=== PATIENT | female | born 1975 | race Caucasian/White ===

== ENCOUNTER 2017-05-29 15:51 | Emergency (ER) | payer OTHER ==
[~2017-05-29] VITALS: Ht 165.1 cm; Wt 124.7 kg
[~2017-05-29 15:51] MED LIST: ALBU90OI INH; AMOX500 PO; Bactrim Ds Tab1 EACH PO; CYCL10 PO; ERYT333ERA PO; Flonase 0.05% N16 GM; GLIP10 PO; HYDACE5 PO; HYDGUAL120 PO; LISI5 PO; LORA.5; MECL25 PO; MEDR150I; METF500; Metformin HCl1000 MG PO; Norco 5-325 Ta1 EACH PO; PENVK500 PO; Percocet 5-3251 EACH PO; Prednisone20 MG PO; SERT25; SERT50; SULTRIDS PO; Simvastatin20 MG PO; ZOLP5; Zithromax250 MG PO
[2017-05-29] MEDS ORDERED: Veetids 500500 MG PO (16:26)
[2018-01-13] MEDS ORDERED: BENZ100A PO (12:19)
== END 2017-05-29 16:33 | disposition home or self-care (01) ==
LOC: ER 15:51
DX: J02.9 Acute pharyngitis, unspecified (principal); E11.9 Type 2 diabetes mellitus without complications; Z88.6 Allergy status to analgesic agent; Z79.84 Long term (current) use of oral hypoglycemic drugs; Z79.899 Other long term (current) drug therapy; Z87.891 Personal history of nicotine dependence
CPT/HCPCS: 87430; 99283; J1100

== ENCOUNTER → 2017-07-27 | Outpatient (CLI) | payer SELFPAY ==
[~2017-07-27] MED LIST changes: +BENZ100A PO; +Veetids 500500 MG PO
[2017-07-27 17:34] LABS: Bilirubin, Urine Neg (Neg); Blood, Urine 1+ (Neg); Glucose Qualitative, Urine 4+ (Neg); Ketones, Urine Neg (Neg); Leukocyte Esterase, Urine 3+ (Neg); Nitrite, Urine Pos (Neg); Protein, Urine 3+ (Neg); Urobilinogen, Urine NORM (Normal)
[2017-07-27 17:40] LABS: Appearance, Urine Hazy (Clear); Color, Urine Yellow (P-Yellow)
[2017-07-27 17:41] LABS: Squamous Epithelial Cells Few /hpf (Few); White Blood Cells, Urine TNTC /hpf (0-5)
[2017-07-27 17:42] LABS: Bacteria Mod /hpf
== END ==
LOC: LAB 17:19
PROVIDERS: Registered Nurse Community Health
DX: N39.0 Urinary tract infection, site not specified (principal)
CPT/HCPCS: 81001; 87077; 87086; 87186

== ENCOUNTER → 2018-08-08 | Outpatient (CLI) | payer OTHER ==
[2018-08-08 17:59] LABS: BASOPHILS ABSOLUTE AUTO 0.05 K/mm3 (0.00-0.23); BASOPHILS PERCENT AUTO 1 % (0-2); EOSINOPHILS ABSOLUTE AUTO 0.09 K/mm3 (0.00-0.68); EOSINOPHILS PERCENT AUTO 2 % (0-6); Hematocrit 41.3 % (33.0-51.0); Hemoglobin 12.9 g/dL (11.5-16.0); IMMATURE GRAN ABSOLUTE AUTO 0.05 K/mm3 (0.00-0.10); IMMATURE GRAN PERCENT AUTO 1 % (0-1); LYMPHOCYTES ABSOLUTE AUTO 1.56 K/mm3 (0.84-5.20); LYMPHOCYTES PERCENT AUTO 27 % (21-46); MONOCYTES PERCENT AUTO 7 % (4-13); Mean Corpuscular HGB 26.8 pg (26.0-34.0); Mean Corpuscular HGB Conc 31.2 g/dL (31.5-36.5); Mean Corpuscular Volume 86 fL (80-100); Mean Platelet Volume 10.6 fL (9.1-12.4); NEUTROPHILS ABSOLUTE AUTO 3.74 K/mm3 (1.96-9.15); NEUTROPHILS PERCENT AUTO 64 % (41-73); Platelet Count 286 K/mm3 (150-400); RDW Coefficient Variation 13.5 % (11.7-14.2); Red Blood Cell Count 4.82 M/mm3 (3.80-5.20); White Blood Cell Count 5.89 K/mm3 (4.00-11.30)
[2018-08-08 18:28] LABS: Alanine Aminotransfer (ALT/SGP 26 U/L (12-78); Albumin, Blood 3.4 g/dL (3.4-5.0); Albumin/Globulin Ratio 0.8 (0.8-1.8); Alk Phos 87 U/L (50-136); Anion Gap 4 mmol/L (6-16); Aspartate Aminotrans (AST/SGOT 13 U/L (12-37); Bilirubin, Total 0.7 mg/dL (0.1-1.0); Blood Urea Nitrogen 9 mg/dL (8-24); Bun/Creatinine Ratio 19.2 (12.0-20.0); CO2, Blood 28 mmol/L (21-32); Calcium, Blood 8.8 mg/dL (8.5-10.1); Chloride, Blood 103 mmol/L (98-108); Cholesterol 186 mg/dL (50-200); Creatinine, Blood 0.47 mg/dL (0.40-1.00); Glomerular Filtration Rate >60 (60-); Glucose, Blood 313 mg/dL (70-99); HDL Cholesterol 46 mg/dL (>39); Low Density Lipoprotein Chol 94 mg/dL (0-110); Potassium, Blood 3.9 mmol/L (3.5-5.5); Sodium, Blood 135 mmol/L (136-145); Thyroid Stimulating Hormone 0.703 uIU/mL (0.360-4.800); Thyroxine (T4) 11.9 ug/dL (4.8-13.9); Total Protein, Blood 7.4 g/dL (6.4-8.2); Triglycerides 230 mg/dL (30-160); Very Low Density Lipoprot Chol 46 mg/dL (6-32)
== END ==
LOC: LAB SHORT 17:29 → LAB 17:29
PROVIDERS: Nurse Practitioner Family
DX: N39.0 Urinary tract infection, site not specified (principal); E11.65 Type 2 diabetes mellitus with hyperglycemia; F32.9 Major depressive disorder, single episode, unspecified
CPT/HCPCS: 80053; 80061; 82043; 82306; 84436; 84443; 85025; 87086

== ENCOUNTER → 2018-09-07 | Outpatient (CLI) | payer OTHER | LOC: LAB SHORT 17:36 → LAB 17:36 | DX: N39.0 Urinary tract infection, site not specified (principal) | CPT/HCPCS: 87086 ==

== ENCOUNTER → 2018-09-12 | Outpatient (CLI) | payer OTHER ==
[2018-09-14 15:06] LABS: HPV 16 Negative (Negative); HPV 18 Negative (Negative); HPV OTHER HR TYPES Negative (Negative)
[2018-09-14 23:08] LABS: CHLAMYDIA TRACHOMATIS, NAA Negative (Negative); NEISSERIA GONORRHOEAE, NAA Negative (Negative)
== END ==
LOC: LAB SHORT 17:40 → LAB 17:40
PROVIDERS: Nurse Practitioner Family
DX: Z01.419 Encounter for gynecological examination (general) (routine) without abnormal findings (principal)
CPT/HCPCS: 87491; 87591; 87624; G0123

== ENCOUNTER → 2019-04-03 | Outpatient (CLI) | payer OTHER ==
[2019-04-03 19:49] LABS: BASOPHILS ABSOLUTE AUTO 0.05 K/mm3 (0.00-0.23); BASOPHILS PERCENT AUTO 1 % (0-2); EOSINOPHILS ABSOLUTE AUTO 0.08 K/mm3 (0.00-0.68); EOSINOPHILS PERCENT AUTO 2 % (0-6); Hematocrit 43.7 % (33.0-51.0); Hemoglobin 13.5 g/dL (11.5-16.0); IMMATURE GRAN ABSOLUTE AUTO 0.05 K/mm3 (0.00-0.10); IMMATURE GRAN PERCENT AUTO 1 % (0-1); LYMPHOCYTES PERCENT AUTO 26 % (21-46); MONOCYTES ABSOLUTE AUTO 0.39 K/mm3 (0.16-1.47); MONOCYTES PERCENT AUTO 7 % (4-13); Mean Corpuscular HGB 25.7 pg (26.0-34.0); Mean Corpuscular HGB Conc 30.9 g/dL (31.5-36.5); Mean Corpuscular Volume 83 fL (80-100); Mean Platelet Volume 10.5 fL (9.1-12.4); NEUTROPHILS ABSOLUTE AUTO 3.48 K/mm3 (1.96-9.15); NEUTROPHILS PERCENT AUTO 64 % (41-73); Platelet Count 271 K/mm3 (150-400); RDW Coefficient Variation 15.2 % (11.7-14.2); RDW Standard Deviation 45.3 fL (35.1-46.3); Red Blood Cell Count 5.26 M/mm3 (3.80-5.20); White Blood Cell Count 5.45 K/mm3 (4.00-11.30)
[2019-04-03 19:50] LABS: Appearance, Urine Hazy (Clear); Bilirubin, Urine Neg (Neg); Blood, Urine 1+ (Neg); Color, Urine Yellow (P-Yellow); Glucose Qualitative, Urine 3+ (Neg); Ketones, Urine 1+ (Neg); Leukocyte Esterase, Urine 1+ (Neg); Nitrite, Urine Pos (Neg); Protein, Urine 1+ (Neg); Specific Gravity, Urine 1.015 (1.003-1.022); Urobilinogen, Urine NORM (Normal)
[2019-04-03 20:05] LABS: Bacteria Many /hpf; Red Blood Cells, Urine 0-2 /hpf (0-2); Squamous Epithelial Cells Mod /hpf (Few)
[2019-04-03 20:32] LABS: Alanine Aminotransfer (ALT/SGP 31 U/L (12-78); Albumin, Blood 3.6 g/dL (3.4-5.0); Albumin/Globulin Ratio 0.9 (0.8-1.8); Alk Phos 98 U/L (50-136); Anion Gap 8 mmol/L (6-16); Aspartate Aminotrans (AST/SGOT 14 U/L (12-37); Bilirubin, Total 0.9 mg/dL (0.1-1.0); Blood Urea Nitrogen 9 mg/dL (8-24); Bun/Creatinine Ratio 17.1 (12.0-20.0); CHOL/HDL RATIO 4.7; CO2, Blood 24 mmol/L (21-32); Calcium, Blood 8.9 mg/dL (8.5-10.1); Chloride, Blood 105 mmol/L (98-108); Cholesterol 221 mg/dL (50-200); Creatinine, Blood 0.53 mg/dL (0.40-1.00); Globulin, Blood 4.2 g/dL (2.2-4.0); Glomerular Filtration Rate >60 (60-); Glucose, Blood 312 mg/dL (70-99); HDL Cholesterol 47 mg/dL (>39); LDL Direct Measurement 131 mg/dL (0-130); LDL/HDL RATIO 2.4; Low Density Lipoprotein Chol 111 mg/dL (0-110); Potassium, Blood 3.7 mmol/L (3.5-5.5); Sodium, Blood 137 mmol/L (136-145); Total Protein, Blood 7.8 g/dL (6.4-8.2); Triglycerides 314 mg/dL (30-160); Very Low Density Lipoprot Chol 62 mg/dL (6-32)
[2019-04-05 05:09] LABS: HEMOGLOBIN A1C 11.7 % (4.8-5.6)
== END | disposition home or self-care (01) ==
LOC: LAB 18:10 → LAB SHORT 18:10 → EDSTATUS 04-03 11:25 → LAB FUT 04-03 11:25
PROVIDERS: Nurse Practitioner Family
DX: E11.65 Type 2 diabetes mellitus with hyperglycemia (principal)
CPT/HCPCS: 80053; 80061; 81001; 82043; 83036; 83721; 85025; 87077; 87086; 87186

== ENCOUNTER → 2020-04-22 | Outpatient (CLI) | payer OTHER ==
[~2020-04-22] MED LIST changes: +ACET325 PO; +BISA10S PR; +BISA5EC PO; +FAMO10 PO; +Lipitor10 MG PO; +MELO7.5 PO; +PROM25 PO; +SULF500 PO
[2020-04-22 16:54] LABS: Source, Urine Clean Catch
[2020-04-22 17:29] LABS: BASOPHILS ABSOLUTE AUTO 0.06 K/mm3 (0.00-0.23); BASOPHILS PERCENT AUTO 1 % (0-2); EOSINOPHILS PERCENT AUTO 1 % (0-6); Hematocrit 45.3 % (33.0-51.0); Hemoglobin 14.6 g/dL (11.5-16.0); IMMATURE GRAN ABSOLUTE AUTO 0.06 K/mm3 (0.00-0.10); IMMATURE GRAN PERCENT AUTO 1 % (0-1); LYMPHOCYTES ABSOLUTE AUTO 1.99 K/mm3 (0.84-5.20); LYMPHOCYTES PERCENT AUTO 28 % (21-46); MONOCYTES ABSOLUTE AUTO 0.49 K/mm3 (0.16-1.47); MONOCYTES PERCENT AUTO 7 % (4-13); Mean Corpuscular HGB 26.9 pg (26.0-34.0); Mean Corpuscular HGB Conc 32.2 g/dL (31.5-36.5); Mean Corpuscular Volume 83 fL (80-100); Mean Platelet Volume 10.8 fL (9.1-12.4); NEUTROPHILS ABSOLUTE AUTO 4.47 K/mm3 (1.96-9.15); NEUTROPHILS PERCENT AUTO 62 % (41-73); Platelet Count 275 K/mm3 (150-400); RDW Coefficient Variation 13.2 % (11.7-14.2); RDW Standard Deviation 40.4 fL (35.1-46.3); Red Blood Cell Count 5.43 M/mm3 (3.80-5.20); White Blood Cell Count 7.17 K/mm3 (4.00-11.30)
[2020-04-22 17:43] LABS: Appearance, Urine Hazy (Clear); Bilirubin, Urine Neg (Neg); Blood, Urine 1+ (Neg); Color, Urine Yellow (P-Yellow); Glucose Qualitative, Urine 4+ (Neg); Ketones, Urine 2+ (Neg); Leukocyte Esterase, Urine Neg (Neg); Nitrite, Urine Pos (Neg); Protein, Urine 2+ (Neg); Urobilinogen, Urine NORM (Normal)
[2020-04-22 18:21] LABS: Bacteria Many /hpf; Red Blood Cells, Urine 0-2 /hpf (0-2); Squamous Epithelial Cells Few /hpf (Few); White Blood Cells, Urine 0-2 /hpf (0-5)
[2020-04-22 18:38] LABS: Alanine Aminotransfer (ALT/SGP 26 U/L (12-78); Albumin, Blood 3.5 g/dL (3.4-5.0); Albumin/Globulin Ratio 0.9 (0.8-1.8); Alk Phos 112 U/L (50-136); Anion Gap 11 mmol/L (6-16); Aspartate Aminotrans (AST/SGOT 17 U/L (12-37); Bilirubin, Total 0.8 mg/dL (0.1-1.0); Blood Urea Nitrogen 10 mg/dL (8-24); Bun/Creatinine Ratio 21.9 (12.0-20.0); CHOL/HDL RATIO 4.6; CO2, Blood 19 mmol/L (21-32); Calcium, Blood 9.6 mg/dL (8.5-10.1); Chloride, Blood 102 mmol/L (98-108); Cholesterol 220 mg/dL (50-200); Creatinine, Blood 0.46 mg/dL (0.40-1.00); Glomerular Filtration Rate >60 (60-); Glucose, Blood 337 mg/dL (70-99); HDL Cholesterol 48 mg/dL (>39); LDL/HDL RATIO 2.3; Low Density Lipoprotein Chol 111 mg/dL (0-110); Potassium, Blood 3.6 mmol/L (3.5-5.5); Sodium, Blood 132 mmol/L (136-145); Theophylline <2.0 ug/mL (10.0-20.0); Total Protein, Blood 7.5 g/dL (6.4-8.2); Triglycerides 307 mg/dL (30-160); Very Low Density Lipoprot Chol 61 mg/dL (6-32)
[2020-04-23 12:03] LABS: Candida species (DNA Probe) Negative (NEGATIVE); G. vaginalis (DNA Probe) Positive (NEGATIVE); T. vaginalis (DNA Probe) Negative (NEGATIVE)
== END | disposition home or self-care (01) ==
LOC: LAB SHORT 12:00 → LAB 12:00
PROVIDERS: Nurse Practitioner Family
DX: E11.65 Type 2 diabetes mellitus with hyperglycemia (principal); N76.0 Acute vaginitis; J44.9 Chronic obstructive pulmonary disease, unspecified
CPT/HCPCS: 80053; 80061; 80198; 81001; 82043; 83036; 85025; 87077; 87086; 87186; 87480; 87510; 87660

== ENCOUNTER → 2020-06-05 | Outpatient (CLI) | payer OTHER ==
[2020-06-05 20:13] LABS: Albumin, Blood 3.4 g/dL (3.4-5.0); Albumin/Globulin Ratio 0.9 (0.8-1.8); Alk Phos 110 U/L (50-136); Anion Gap 5 mmol/L (6-16); Aspartate Aminotrans (AST/SGOT 20 U/L (12-37); Blood Urea Nitrogen 13 mg/dL (8-24); Bun/Creatinine Ratio 30.4 (12.0-20.0); CHOL/HDL RATIO 3.5; CO2, Blood 26 mmol/L (21-32); Calcium, Blood 9.3 mg/dL (8.5-10.1); Chloride, Blood 106 mmol/L (98-108); Cholesterol 158 mg/dL (50-200); Creatinine, Blood 0.43 mg/dL (0.40-1.00); Globulin, Blood 3.7 g/dL (2.2-4.0); Glomerular Filtration Rate >60 (60-); Glucose, Blood 264 mg/dL (70-99); HDL Cholesterol 45 mg/dL (>39); LDL/HDL RATIO 1.7; Low Density Lipoprotein Chol 76 mg/dL (0-110); Potassium, Blood 4.1 mmol/L (3.5-5.5); Sodium, Blood 137 mmol/L (136-145); Total Protein, Blood 7.1 g/dL (6.4-8.2); Triglycerides 186 mg/dL (30-160); Very Low Density Lipoprot Chol 37 mg/dL (6-32)
[2020-06-05 20:23] LABS: Alanine Aminotransfer (ALT/SGP 36 U/L (12-78)
== END | disposition home or self-care (01) ==
LOC: LAB 10:40 → LAB SHORT 10:40
PROVIDERS: Nurse Practitioner Family
DX: N39.0 Urinary tract infection, site not specified (principal); E55.9 Vitamin D deficiency, unspecified; E78.5 Hyperlipidemia, unspecified
CPT/HCPCS: 80053; 80061; 82306; 87077; 87086; 87186

== ENCOUNTER 2020-07-17 19:36 | Emergency (ER) | payer OTHER ==
[~2020-07-17] VITALS: Ht 165.1 cm; Wt 117.5 kg
[~2020-07-17 19:36] MED LIST changes: -ACET325 PO; -BISA10S PR; -BISA5EC PO; -FAMO10 PO; -Lipitor10 MG PO; -MELO7.5 PO; -PROM25 PO; -SULF500 PO
[2020-07-17] MEDS ORDERED: Lipitor10 MG PO (20:46)
[2020-07-17] MEDS ORDERED: FAMO10 PO (20:47)
[2020-07-17] MEDS ORDERED: SULF500 PO (20:49)
[2020-07-17] MEDS ORDERED: MELO7.5 PO (20:50)
[2020-07-17] MEDS ORDERED: PROM25 PO (21:23)
[2020-07-17] MEDS ORDERED: BISA5EC PO (21:35)
== END 2020-07-17 22:21 | disposition home or self-care (01) ==
LOC: ER 19:36
DX: K85.90 Acute pancreatitis without necrosis or infection, unspecified (principal); Z79.899 Other long term (current) drug therapy; Z87.891 Personal history of nicotine dependence
CPT/HCPCS: 74177; 82947; 99284; A9270; Q9967

== ENCOUNTER 2020-07-17 22:27 | Inpatient (IN) | payer OTHER ==
[~2020-07-17] VITALS: Ht 165.1 cm; Wt 118.0 kg
[~2020-07-17 22:27] MED LIST changes: +BISA5EC PO; +FAMO10 PO; +Lipitor10 MG PO; +MELO7.5 PO; +PROM25 PO; +SULF500 PO
--- NOTE | 2020-07-18 04:24 | NUR ---
SHIFT SUMMARY PT NEW ED ADMIT THIS EVENING. SOME MILD TENDERNESS W/ PALPATION NOTED TO RUQ OF ABD. OTHERISE PT HAS DENIED PAIN SINCE ADMISSION. ONE EPISODE OF NAUSEA THAT LASTED ONLY A COUPLE MINUTES AND RESOLVED ON ITS OWN. PT EXPERIENCING SOME FEELING OF WEAKNESS BUT HAS BEEN WALKING WELL TO THE RESTROOM WITH ONLY A SBA. PT A/O, PLEASANT AND COOPERATIVE. VITAL SIGNS STABLE. WILL CONTINUE TO MONITOR.
[2020-07-18 05:14] LABS: BASOPHILS ABSOLUTE AUTO 0.06 K/mm3 (0.00-0.23); BASOPHILS PERCENT AUTO 1 % (0-2); EOSINOPHILS ABSOLUTE AUTO 0.13 K/mm3 (0.00-0.68); EOSINOPHILS PERCENT AUTO 2 % (0-6); Hemoglobin 11.6 g/dL (11.5-16.0); IMMATURE GRAN ABSOLUTE AUTO 0.06 K/mm3 (0.00-0.10); IMMATURE GRAN PERCENT AUTO 1 % (0-1); LYMPHOCYTES ABSOLUTE AUTO 2.03 K/mm3 (0.84-5.20); LYMPHOCYTES PERCENT AUTO 30 % (21-46); MONOCYTES PERCENT AUTO 7 % (4-13); Mean Corpuscular HGB 26.4 pg (26.0-34.0); Mean Corpuscular HGB Conc 32.2 g/dL (31.5-36.5); Mean Corpuscular Volume 82 fL (80-100); Mean Platelet Volume 10.3 fL (9.1-12.4); NEUTROPHILS ABSOLUTE AUTO 4.02 K/mm3 (1.96-9.15); NEUTROPHILS PERCENT AUTO 59 % (41-73); Platelet Count 227 K/mm3 (150-400); RDW Coefficient Variation 14.3 % (11.7-14.2); RDW Standard Deviation 42.4 fL (35.1-46.3); Red Blood Cell Count 4.39 M/mm3 (3.80-5.20)
[2020-07-18 05:48] LABS: Anion Gap 9 mmol/L (6-16); Blood Urea Nitrogen 16 mg/dL (8-24); CO2, Blood 21 mmol/L (21-32); Calcium, Blood 8.2 mg/dL (8.5-10.1); Chloride, Blood 110 mmol/L (98-108); Creatinine, Blood 0.55 mg/dL (0.40-1.00); Glomerular Filtration Rate >60 (60-); Glucose, Blood 165 mg/dL (70-99); Potassium, Blood 3.5 mmol/L (3.5-5.5); Sodium, Blood 140 mmol/L (136-145); Triglycerides 222 mg/dL (30-160)
--- NOTE | 2020-07-18 17:39 | NUR ---
SHIFT SUMMARY NO ACUTE CHANGES T/O SHIFT, CALM AND COOPERATIVE c CARE, A&Ox4. PT REPORTS FEELING MUCH TODAY COMPARED TO LAST NIGHT IN THE ED. NO SYNCOPAL EPISODES THIS SHIFT, AND PT DENIES ANY NAUSEA. PT WAS TREATED X1 FOR MINOR ABD PAIN THAT WAS QUICKLY RELIEVED c IV DIALUDID. BROWN/WHITE DISCHARGE WAS NOTED TODAY AND PT REPORTED THAT SHE OFTEN GETS YEAST INFECTIONS, ESPECIALLY WHEN TAKING ABX. ONE TIME DOSE OF IV DIFLUCAN WAS ORDERED AND ADMINISTERED. PT LIKELY TO DISCHARGE TOMORROW PER HOSPITALIST. NS c K+ RUNNING CONTINUOUS. PT IS CURRENTLY RESTING IN BED AND APPEARS TO BE IN NO DISTRESS.
--- NOTE | 2020-07-19 04:08 | NUR ---
SHIFT SUMMARY ADMITTED FOR PANCREATITIS. FULL CODE. NS W/20 MEQ KCL INFUSING @ 100 ML/HR. NAUSEA & VOMITING PERIODICALLY THROUGHOUT SHIFT. SHE IS NPO - ICE CHIPS ONLY. I DID COUNCEL HER TO SLOW DOWN ON THE ICE CHIPS DUE TO HER SEVERE NAUSEA. MEDICATED FOR PAIN & NAUSEA THIS SHIFT. CHEMSTICKS Q6 HRS WHILE NPO.
[2020-07-19 05:38] LABS: BASOPHILS ABSOLUTE AUTO 0.04 K/mm3 (0.00-0.23); BASOPHILS PERCENT AUTO 1 % (0-2); EOSINOPHILS ABSOLUTE AUTO 0.07 K/mm3 (0.00-0.68); EOSINOPHILS PERCENT AUTO 1 % (0-6); Hematocrit 37.2 % (33.0-51.0); Hemoglobin 12.1 g/dL (11.5-16.0); IMMATURE GRAN ABSOLUTE AUTO 0.05 K/mm3 (0.00-0.10); IMMATURE GRAN PERCENT AUTO 1 % (0-1); LYMPHOCYTES ABSOLUTE AUTO 1.35 K/mm3 (0.84-5.20); LYMPHOCYTES PERCENT AUTO 23 % (21-46); MONOCYTES ABSOLUTE AUTO 0.38 K/mm3 (0.16-1.47); MONOCYTES PERCENT AUTO 7 % (4-13); Mean Corpuscular HGB 26.7 pg (26.0-34.0); Mean Corpuscular HGB Conc 32.5 g/dL (31.5-36.5); Mean Corpuscular Volume 82 fL (80-100); Mean Platelet Volume 10.4 fL (9.1-12.4); NEUTROPHILS ABSOLUTE AUTO 3.94 K/mm3 (1.96-9.15); NEUTROPHILS PERCENT AUTO 68 % (41-73); Platelet Count 225 K/mm3 (150-400); RDW Coefficient Variation 14.5 % (11.7-14.2); RDW Standard Deviation 42.5 fL (35.1-46.3); Red Blood Cell Count 4.53 M/mm3 (3.80-5.20); White Blood Cell Count 5.83 K/mm3 (4.00-11.30)
[2020-07-19 06:01] LABS: Alanine Aminotransfer (ALT/SGP 34 U/L (12-78); Albumin, Blood 3.1 g/dL (3.4-5.0); Albumin/Globulin Ratio 0.9 (0.8-1.8); Alk Phos 85 U/L (50-136); Anion Gap 7 mmol/L (6-16); Aspartate Aminotrans (AST/SGOT 25 U/L (12-37); Bilirubin, Total 2.1 mg/dL (0.1-1.0); Blood Urea Nitrogen 8 mg/dL (8-24); Bun/Creatinine Ratio 14.7 (12.0-20.0); CO2, Blood 22 mmol/L (21-32); Calcium, Blood 8.4 mg/dL (8.5-10.1); Chloride, Blood 110 mmol/L (98-108); Creatinine, Blood 0.55 mg/dL (0.40-1.00); Globulin, Blood 3.5 g/dL (2.2-4.0); Glomerular Filtration Rate >60 (60-); Glucose, Blood 159 mg/dL (70-99); Potassium, Blood 3.9 mmol/L (3.5-5.5); Sodium, Blood 139 mmol/L (136-145); Total Protein, Blood 6.6 g/dL (6.4-8.2)
--- NOTE | 2020-07-19 17:55 | NUR ---
SHIFT SUMMARY NO ACUTE CHANGES T/O SHIFT, A&Ox4, CALM AND COOPERATIVE c CARE. PT EXPERIENCED SOME NAUSEA & VOMITING PRIOR SHIFT SO MARITA DECIDED TO KEEP PT FOR ANOTHER DAY FOR OBSERVATION. PT DID EXPERIENCE DRY HEAVING X3 AND PAIN X2 T/O MY SHIFT AND WAS TREATED PER EMAR. MEDICATIONS IS EFFECTIVE FOR PT. PT IS STILL RECIEVING CONTINUOUS NS K+ VIA IV AND REMAINS NPO (ICE CHIPS ONLY). PT IS CURRENTLY SLEEPING AND USES CALL LIGHT APPROPRIATELY. APPEARS TO BE IN NO DISTRESS.
--- NOTE | 2020-07-20 03:59 | NUR ---
SHIFT SUMMARY ADMITTED FOR PANCREATITIS. FULL CODE. PT IS NPO, W/ICE CHIPS ONLY. Q 6 CHEMSTICKS WHILE NPO. NS W/KCL INFUSING @ 100 ML/HR. 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 SHE IS HOPEFUL FOR DC HOME W/FAMILY WHEN SHE IS ABLE.
--- NOTE | 2020-07-20 19:31 | NUR ---
SHIFT SUMMARY: NO ACUTE EVENTS TO REPORT THIS SHIFT. PT A&O; CALM AND COOPERATIVE WITH CARE. DIET ADVANCED FROM NPO TO FULL LIQUIDS; PT DID NOT TOLERATE WELL; IV MEDS FOR PAIN & NAUSEA GIVEN. PT AMBULATING IN HALLS WITH SBA & IV POLE. FLUIDS & PAIN CONTROL CONTINUING. REPORT GIVEN TO ONCOMING RN.
--- NOTE | 2020-07-20 20:32 | NUR ---
PHYSICIAN CORRESPONDENCE SPOKE TO DR. FOWLER AND STATED THAT PATIENT IS NOW ON A FULL LIQUID DIET AND TOLERATING WELL. CURRENTLY ON Q6 BLOOD SUGARS; HOWEVER, NO LONGER NPO. NEW ORDERS PLACED FOR BLOOD SUGARS AND INSULIN COVERAGE AC/HS.
--- NOTE | 2020-07-21 04:00 | NUR ---
SHIFT SUMMARY A/O, ABLE TO MAKE NEEDS KNOWN. COOPERATIVE WITH CARE. CALLS AND ANSWERS QUESTIONS APPROPRIATELY. NO C/O PAIN/DISCOMFORT OVERNIGHT. AND DID NOT HAVE ANY EPISODES OF NAUSEA. STATED FLAUTUS AND BELCHING. ENCOURAGED TO AMBULATE THROUGH HALLWAYS. CONTINUOUS FLUIDS RUNNING T/O SHIFT. APPEARED TO REST. VSS/AFEBRILE. NO ACUTE CHANGES NOTED OVERNIGHT. BED REMAINS IN LOWEST POSITION. CALL LIGHT AND BELONGINGS WITHIN REACH. CONTINUE WITH CURRENT PLAN OF CARE. REPORT TO ONCOMING RN.
--- NOTE | 2020-07-21 12:58 | NUR ---
SHE HAS AMBULATED IN THE [facility] FOR ATLEAST 30 MIN STRAIGHT AND WILL GO AGAIN SOON. SHE HAD A SHOWER AND A SUPPOSITORY WITHOUT RESULTS. SHE PASSES A LITTLE FLATUS. SHE ATE 90% OF HER SOFT LOW FAT LUNCH AND IS NOT DISTRESSED. IVF'S STOPPED FOR THE SHOWER. MD SAY OK TO NOT RESUME THEM AT THIS TIME. STILL HOPING SHE WILL BE WELL ENOUGH TO GO HOME.
[2020-07-21] MEDS ORDERED: BISA10S PR (15:43)
[2020-07-21] MEDS ORDERED: ACET325 PO (15:46)
--- NOTE | 2020-07-21 17:01 | NUR ---
DISCHARGED TO HOME WITH INSTRUCTIONS AND BELONGINGS. SHE IS HAPPY TO GO. HER IS WITH HER.
== END 2020-07-21 16:00 | disposition home or self-care (01) | DRG 439 ==
LOC: ER 22:27 → MEDS 23:29 → ER 07-18 00:09 → MEDS 07-18 00:09
PROVIDERS: Internal Medicine; Nurse Practitioner Acute Care; ADMIT Internal Medicine
PROC: 3E0234Z Introduction of Serum, Toxoid and Vaccine into Muscle, Percutaneous Approach (ICD-10-PCS; principal; 2020-07-18)
DX: K85.90 Acute pancreatitis without necrosis or infection, unspecified (principal); N39.0 Urinary tract infection, site not specified; K56.0 Paralytic ileus; Z68.41 Body mass index [BMI] 40.0-44.9, adult; Z23 Encounter for immunization; E78.5 Hyperlipidemia, unspecified; E11.9 Type 2 diabetes mellitus without complications; I10 Essential (primary) hypertension; K21.9 Gastro-esophageal reflux disease without esophagitis; E66.01 Morbid (severe) obesity due to excess calories; M19.90 Unspecified osteoarthritis, unspecified site; Z79.84 Long term (current) use of oral hypoglycemic drugs; Z79.1 Long term (current) use of non-steroidal anti-inflammatories (NSAID)
CPT/HCPCS: 36415; 80048; 80053; 82947; 84478; 85025; 96361; 96374; 99284-25; A9270; J0696; J0780; J1170; J1450; J1650; J2405; J3010; J3480; J7030; Q2038